=== PATIENT | female | born 1980 | race Asian ===

== ENCOUNTER 2020-04-29 07:10 | Inpatient (IN) | payer BC ==
[2020-04-29] MEDS ORDERED: CLINDAMYCIN 900 MG PREMIX IVPB 900 MG/50 ML BAG IVPB ONE ×2 (08:26→09:45)
[2020-04-29] MEDS ORDERED: OXYTOCIN 30 UNITS in 0.9% NS 30 UNIT/500 ML INFUS.BAG IVPB SCH (08:30)
[2020-04-29] MEDS ORDERED: ELECTROLYTE-148 SOLN 1,000 ML IV SCH (08:30)
[2020-04-29] MEDS ORDERED: OXYTOCIN 30 UNITS in 0.9% NS 30 UNIT/500 ML INFUS.BAG IVPB ONE (09:04)
[2020-04-29 09:29] VITALS: BMI 33.3
[2020-04-29 09:33] LABS: BASO % 0.6 % (0-2.0); EOS % 0.7 % (0-4.5); HEMATOCRIT 38.6 % (32.4-45.2); HEMOGLOBIN 12.6 GM/dL (10.7-15.3); LYMPH % 30.5 % (8-40); MCH 29.7 pg (25.7-33.7); MCHC 32.5 g/dl (32.0-36.0); MEAN CELL VOLUME 91.3 fl (80-96); MEAN PLT VOLUME 8.9 fl (7.5-11.1); MONO % 5.4 % (3.8-10.2); NEUT % 62.8 % (42.8-82.8); PLATELET COUNT 195 K/MM3 (134-434); RBC 4.23 M/mm3 (3.60-5.2); RDW 13.5 % (11.6-15.6); WHITE BLOOD COUNT 7.2 K/mm3 (4.0-10.0)
[2020-04-29 09:39] LABS: INR 0.96 (0.83-1.09); PROTHROMBIN TIME (PATIENT) 11.6 SEC (9.7-13.0)
[2020-04-29 09:42] LABS: ACTIVATED PTT 26.7 SECONDS (25.2-36.5)
[2020-04-29 09:58] LABS: POTASSIUM 4.2 mmol/L (3.5-5.1)
[2020-04-29 10:00] LABS: BLOOD UREA NITROGEN 12.1 mg/dL (7-18); CALCIUM 9.1 mg/dL (8.5-10.1)
[2020-04-29 10:03] LABS: CREATININE 0.6 mg/dL (0.55-1.3)
[2020-04-29 11:15] LABS: HIV INTERPRETATION NEGATIVE (NEGATIVE)
[2020-04-29] MEDS ORDERED: PCA PUMP NR ONE (11:56)
[2020-04-29] MEDS ORDERED: FENTANYL/BUPIVACAINE/NS/PF - PCEA - 50 ML DISP.SYRIN EP ONE (11:57)
[2020-04-29] MEDS ORDERED: OXYTOCIN 20 UNITS in 0.9% NS 20 UNIT/1,000 ML INFUS.BAG IV ONE (11:58)
[2020-04-29] MEDS ORDERED: BUPIVACAINE HCL/PF 0.25% (2.5MG/ML) 10 ML VIAL ONE (12:25)
[2020-04-29] MEDS ORDERED: IBUPROFEN 600 MG TABLET (FP) PO ONE (13:47)
[2020-04-29] MEDS ORDERED: ACETAMINOPHEN 325 MG TABLET (FP) ONE (13:47)
[2020-04-29] MEDS ORDERED: OXYTOCIN 20 UNITS in 0.9% NS 20 UNIT/1,000 ML INFUS.BAG IV SCH (14:00)
[2020-04-29] MEDS: ACETAMINOPHEN 325 MG TABLET (FP) PO PRN ×2 (14:05→21:02)
[2020-04-29] MEDS: IBUPROFEN 600 MG TABLET (FP) PO PRN ×2 (14:05→21:02)
[2020-04-29] MEDS ORDERED: BENZOCAINE 28 GM HEMORRHOIDAL OINTMENT TP PRN (14:16)
[2020-04-29] MEDS ORDERED: BISACODYL 10 MG SUPP.RECT RC PRN (14:16)
[2020-04-29] MEDS ORDERED: BENZOCAINE 20% 57 GM BOTTLE TP PRN (14:16)
[2020-04-29] MEDS ORDERED: WITCH HAZEL 50% (TUCKS) 40 PAD/JAR PAD TP PRN (14:16)
[2020-04-29] MEDS ORDERED: METHYLERGONOVINE MALEATE 0.2 MG/1 ML AMP IM PRN (14:16)
[2020-04-29] MEDS ORDERED: CLINDAMYCIN 600MG PREMIX IVPB 600 MG/50 ML BAG IVPB SCH (14:30)
[2020-04-29 14:48] LABS: CORD HCO3 24.1 mmHg (20-29); CORD PCO2 55.6 mmHg (30-78); CORD pH 7.255 (7.14-7.44)
[2020-04-29 14:58] LABS: CORD BASE EXCESS -4.8 mmol/L (0-2); CORD HCO3 22.3 mmHg (20-29); CORD PCO2 48.5 mmHg (30-78); CORD pH 7.28 (7.14-7.44)
[2020-04-29] MEDS: FERROUS SO4 325 MG TABLET (FP) PO SCH (17:54)
[2020-04-30 08:41] LABS: BASO % 0.5 % (0-2.0); EOS % 1.5 % (0-4.5); HEMATOCRIT 36.9 % (32.4-45.2); HEMOGLOBIN 12.1 GM/dL (10.7-15.3); LYMPH % 26.4 % (8-40); MCH 29.6 pg (25.7-33.7); MCHC 32.7 g/dl (32.0-36.0); MEAN CELL VOLUME 90.8 fl (80-96); MEAN PLT VOLUME 9.2 fl (7.5-11.1); MONO % 5.1 % (3.8-10.2); NEUT % 66.5 % (42.8-82.8); PLATELET COUNT 189 K/MM3 (134-434); RBC 4.07 M/mm3 (3.60-5.2); RDW 13.2 % (11.6-15.6); WHITE BLOOD COUNT 9.4 K/mm3 (4.0-10.0)
[2020-04-30] MEDS: PRENATAL VITAMINS W/ FOLIC ACID TABLET (FP) PO SCH (09:24)
[2020-04-30] MEDS: FERROUS SO4 325 MG TABLET (FP) PO SCH ×2 (09:24→17:20)
[2020-04-30] MEDS: IBUPROFEN 600 MG TABLET (FP) PO PRN ×3 (14:04→23:30)
[2020-04-30] MEDS: ACETAMINOPHEN 325 MG TABLET (FP) PO PRN ×3 (14:04→23:30)
[2020-04-30] MEDS ORDERED: SENNOSIDES/DOCUSATE COMBO (SENNA PLUS) TABLET (UD) PO PRN (22:00)
[2020-05-01] MEDS: ACETAMINOPHEN 325 MG TABLET (FP) PO PRN (08:09)
[2020-05-01] MEDS: IBUPROFEN 600 MG TABLET (FP) PO PRN (08:09)
[2020-05-01] MEDS: FERROUS SO4 325 MG TABLET (FP) PO SCH (08:09)
[2020-05-01] MEDS: PRENATAL VITAMINS W/ FOLIC ACID TABLET (FP) PO SCH (09:38)
[2020-05-01 13:33] VITALS: BP 128/84; PULSE 66; TEMP 97.6
== END 2020-05-01 11:40 | disposition home or self-care (01) | DRG 807 ==
LOC: JLDR 07:10 → J3W 15:47
PROVIDERS: ADMIT Obstetrics & Gynecology; ATTEND Obstetrics & Gynecology
PROC: 10E0XZZ Delivery of Products of Conception, External Approach (ICD-10-PCS; principal; 2020-04-29)
DX: O80 Encounter for full-term uncomplicated delivery (principal); Z3A.38 38 weeks gestation of pregnancy; Z37.0 Single live birth
CPT/HCPCS: 36415; 36600; 59409; 80048; 82803; 85025; 85610; 85730; 86780; 86850; 86900; 86901; 87389

== ENCOUNTER 2021-03-30 12:16 | Emergency (ER) | payer BC ==
[2021-03-30 12:29] VITALS: BMI 32.1
[2021-03-30] MEDS ORDERED: DEXTROSE 5%-LACTATED RINGERS 1,000 ML IV SCH ×2 (13:00→15:00)
[2021-03-30 13:36] VITALS: BP 100/68; PULSE 109; TEMP 98.2
[2021-03-30 13:45] LABS: HEMATOCRIT 37.3 % (32.4-45.2); HEMOGLOBIN 12.5 GM/dL (10.7-15.3); MCH 30.6 pg (25.7-33.7); MCHC 33.6 g/dl (32.0-36.0); MEAN CELL VOLUME 90.9 fl (80-96); MEAN PLT VOLUME 8.6 fl (7.5-11.1); PLATELET COUNT 188 10^3/uL (134-434); RDW 12.4 % (11.6-15.6); WHITE BLOOD COUNT 4.9 K/mm3 (4.0-10.0)
[2021-03-30 14:04] LABS: ALBUMIN 2.8 g/dl (3.4-5.0); BLOOD UREA NITROGEN 8.4 mg/dL (7-18); CALCIUM 8.8 mg/dL (8.5-10.1)
[2021-03-30 14:07] LABS: CREATININE 0.6 mg/dL (0.55-1.3)
[2021-03-30 14:09] LABS: TOT PROT 6.7 g/dl (6.4-8.2)
[2021-03-30 14:21] LABS: BILIRUBIN,TOTAL 0.6 mg/dL (0.2-1)
== END 2021-03-30 15:50 | disposition home or self-care (01) ==
LOC: JER 12:16
PROC: 3E0337Z Introduction of Electrolytic and Water Balance Substance into Peripheral Vein, Percutaneous Approach (ICD-10-PCS; principal; 2021-03-30)
DX: O26.893 Other specified pregnancy related conditions, third trimester (principal); R10.84 Generalized abdominal pain; Z3A.35 35 weeks gestation of pregnancy
CPT/HCPCS: 36415; 80053; 85027; 99284-25; C9803; U0003; U0005

== ENCOUNTER 2021-04-21 07:45 | Inpatient (IN) | payer BC ==
[2021-04-21] MEDS ORDERED: CLINDAMYCIN 600MG PREMIX IVPB 600 MG/50 ML BAG IVPB ONE (08:49)
[2021-04-21] MEDS ORDERED: ELECTROLYTE-148 SOLN 1,000 ML IV SCH (09:00)
[2021-04-21 09:13] VITALS: BMI 32.1
[2021-04-21] MEDS ORDERED: CLINDAMYCIN 900 MG PREMIX IVPB 900 MG/50 ML BAG IVPB ONE ×2 (09:21→14:27)
[2021-04-21 09:58] LABS: BASO % 0.4 % (0-2.0); EOS % 1.2 % (0-4.5); HEMATOCRIT 35.5 % (32.4-45.2); HEMOGLOBIN 12.1 GM/dL (10.7-15.3); LYMPH % 31.3 % (8-40); MCH 30.1 pg (25.7-33.7); MCHC 34.1 g/dl (32.0-36.0); MEAN CELL VOLUME 88.2 fl (80-96); MEAN PLT VOLUME 8.4 fl (7.5-11.1); MONO % 7.7 % (3.8-10.2); NEUT % 59.4 % (42.8-82.8); PLATELET COUNT 199 10^3/uL (134-434); RBC 4.03 M/mm3 (3.60-5.2); RDW 12.6 % (11.6-15.6); WHITE BLOOD COUNT 4.9 K/mm3 (4.0-10.0)
[2021-04-21] MEDS ORDERED: OXYTOCIN 30 UNITS in 0.9% NS 30 UNIT/500 ML INFUS.BAG IVPB SCH (10:00)
[2021-04-21] MEDS ORDERED: OXYTOCIN 30 UNITS in 0.9% NS 30 UNIT/500 ML INFUS.BAG IVPB ONE ×2 (10:08→12:18)
[2021-04-21 10:09] LABS: INR 0.95 (0.83-1.09); PROTHROMBIN TIME (PATIENT) 11.1 SEC (9.7-13.0)
[2021-04-21 10:12] LABS: ACTIVATED PTT 24.5 SECONDS (25.2-36.5)
[2021-04-21] MEDS: CLINDAMYCIN 900 MG PREMIX IVPB 900 MG/50 ML BAG IVPB SCH ×2 (10:30→14:30)
[2021-04-21 10:31] LABS: CALCIUM 9.1 mg/dL (8.5-10.1)
[2021-04-21 10:32] LABS: BLOOD UREA NITROGEN 8.5 mg/dL (7-18)
[2021-04-21 10:35] LABS: CREATININE 0.6 mg/dL (0.55-1.3)
[2021-04-21] MEDS ORDERED: PCA PUMP NR ONE (10:46)
[2021-04-21] MEDS ORDERED: BUPIVACAINE HCL/PF 0.25% (2.5MG/ML) 10 ML VIAL ONE (10:48)
[2021-04-21] MEDS ORDERED: FENTANYL/BUPIVACAINE/NS/PF - PCEA - 50 ML DISP.SYRIN EP ONE (11:02)
[2021-04-21] MEDS ORDERED: OXYTOCIN 20 UNITS in 0.9% NS 20 UNIT/1,000 ML INFUS.BAG IV ONE (14:48)
[2021-04-21] MEDS ORDERED: WITCH HAZEL 50% (TUCKS) 40 PAD/JAR PAD TP PRN (15:15)
[2021-04-21] MEDS ORDERED: METHYLERGONOVINE MALEATE 0.2 MG/1 ML AMP IM PRN (15:15)
[2021-04-21] MEDS ORDERED: BISACODYL 10 MG SUPP.RECT RC PRN (15:15)
[2021-04-21] MEDS ORDERED: BENZOCAINE 20% 57 GM BOTTLE TP PRN (15:15)
[2021-04-21] MEDS ORDERED: OXYTOCIN 20 UNITS in 0.9% NS 20 UNIT/1,000 ML INFUS.BAG IV SCH (15:15)
[2021-04-21] MEDS ORDERED: BENZOCAINE 28 GM HEMORRHOIDAL OINTMENT TP PRN (15:15)
[2021-04-21 16:43] LABS: CORD BASE EXCESS -3.6 mmol/L (0-2); CORD HCO3 23.4 mmHg (20-29); CORD PCO2 49.6 mmHg (30-78); CORD pH 7.291 (7.14-7.44)
[2021-04-21 16:44] LABS: CORD HCO3 20.9 mmHg (20-29); CORD PCO2 38.1 mmHg (30-78); CORD pH 7.358 (7.14-7.44)
[2021-04-21] MEDS: IBUPROFEN 600 MG TABLET (FP) PO PRN (16:45)
[2021-04-21] MEDS: ACETAMINOPHEN 325 MG TABLET (FP) PO PRN (16:45)
[2021-04-21] MEDS ORDERED: IBUPROFEN 600 MG TABLET (FP) PO ONE (16:48)
[2021-04-21] MEDS ORDERED: ACETAMINOPHEN 325 MG TABLET (FP) ONE (16:49)
[2021-04-22] MEDS: CLINDAMYCIN 900 MG PREMIX IVPB 900 MG/50 ML BAG IVPB SCH (06:03)
[2021-04-22] MEDS: ACETAMINOPHEN 325 MG TABLET (FP) PO PRN (06:09)
[2021-04-22 08:55] LABS: BASO % 0.7 % (0-2.0); EOS % 1.8 % (0-4.5); HEMATOCRIT 38.4 % (32.4-45.2); LYMPH % 27.5 % (8-40); MCH 30.2 pg (25.7-33.7); MCHC 33.7 g/dl (32.0-36.0); MEAN CELL VOLUME 89.6 fl (80-96); MEAN PLT VOLUME 8.6 fl (7.5-11.1); MONO % 6.1 % (3.8-10.2); NEUT % 63.9 % (42.8-82.8); PLATELET COUNT 208 10^3/uL (134-434); RBC 4.29 M/mm3 (3.60-5.2); WHITE BLOOD COUNT 8.4 K/mm3 (4.0-10.0)
[2021-04-22] MEDS: IBUPROFEN 600 MG TABLET (FP) PO PRN ×2 (09:53→16:13)
[2021-04-22] MEDS ORDERED: DIPHTH,PERTUSS(ACELL),TET 0.5 ML DISP.SYRIN IM ONE ×3 (10:00→16:30)
[2021-04-22] MEDS: oxyCODONE HCL 5 MG TABLET PO PRN (12:17)
[2021-04-22] MEDS ORDERED: SENNOSIDES/DOCUSATE COMBO (SENNA PLUS) TABLET (UD) PO PRN (22:00)
[2021-04-23] MEDS: oxyCODONE HCL 5 MG TABLET PO PRN (02:17)
[2021-04-23 10:12] VITALS: BP 125/79; PULSE 75; TEMP 98.2
[2021-04-23] MEDS: IBUPROFEN 600 MG TABLET (FP) PO PRN (12:08)
== END 2021-04-23 14:20 | disposition home or self-care (01) | DRG 807 ==
LOC: JLDR 07:45 → J3W 16:50
PROVIDERS: ADMIT Obstetrics & Gynecology; ATTEND Obstetrics & Gynecology
PROC: 10E0XZZ Delivery of Products of Conception, External Approach (ICD-10-PCS; principal; 2021-04-21)
DX: O69.81X0 Labor and delivery complicated by cord around neck, without compression, not applicable or unspecified (principal); Z3A.38 38 weeks gestation of pregnancy; Z37.0 Single live birth; Z86.16 Personal history of COVID-19
CPT/HCPCS: 36415; 36600; 59409; 80048; 82803; 85025; 85610; 85730; 86780; 86850; 86900; 86901; 90715; C9803; U0003; U0005